=== PATIENT | female | born 1985 | race Caucasian/White ===

== ENCOUNTER 2017-07-27 17:05 | Inpatient (IN) | payer MEDICAID ==
[~2017-07-27] VITALS: Ht 165.1 cm; Wt 104.8 kg
[2017-07-27] MEDS: LACTATED RINGERS 1,000 ML IV SCH (03:15)
[2017-07-27] MEDS ORDERED: PREN-380 PO (17:49)
[2017-07-27 19:51] VITALS: BP 127/77
[2017-07-28] MEDS: LACTATED RINGERS 1,000 ML IV SCH ×4 (03:00→18:35)
--- NOTE | 2017-07-28 09:09 | NUR ---
PATIENT HAS BEEN SCREENED AND CATEGORIZED LOW NUTRITION RISK. PATIENT WILL BE SEEN WITHIN 7 DAYS OF ADMISSION. 08/02/[address]
[2017-07-28] MEDS ORDERED: ACETAMINOPHEN 325 MG TAB ONE ×2 (09:49→18:33)
[2017-07-28] MEDS: ACETAMINOPHEN 325 MG TAB PO PRN ×2 (09:51→18:34)
[2017-07-28] MEDS ORDERED: OXYTOCIN 20 UNITS in LACTATED RINGERS 1,000 ML IV SCH (14:57)
[2017-07-28] MEDS ORDERED: METHYLERGONOVINE 0.2 MG/ML AMP IM PRN (15:00)
[2017-07-28] MEDS ORDERED: PROMETHAZINE 25 MG/ML VIAL IVP PRN (15:00)
[2017-07-28] MEDS ORDERED: OXYTOCIN 10 UNITS/ML VIAL IM SCH (15:00)
[2017-07-28] MEDS ORDERED: LACTATED RINGERS 500 ML IV SCH (15:00)
[2017-07-28] MEDS ORDERED: NALBUPHINE HYDROCHLORIDE 10 MG/ML VIAL IVP PRN (15:00)
[2017-07-28] MEDS ORDERED: AMPICILLIN 2,000 MG in NACL 0.9% MINI-BAG PLUS 100 ML IV SCH (15:00)
[2017-07-28] MEDS ORDERED: CARBOPROST 250 MCG/ML AMP IM PRN (15:00)
[2017-07-28 16:31] LABS: BASOPHILS # (AUTO) 0.1 K/uL (0.00-0.22); BASOPHILS % (AUTO) 1.5 % (0.0-2.0); EOSINOPHILS # (AUTO) 0.1 K/uL (0-0.4); EOSINOPHILS % (AUTO) 0.9 % (0.0-4.0); HEMATOCRIT 36.6 % (36-48); HEMOGLOBIN 12.5 g/dL (12.0-16.0); LYMPHOCYTES # (AUTO) 1.5 K/uL (2.5-16.5); LYMPHOCYTES % (AUTO) 20.9 % (20.5-51.1); MEAN CORPUSCULAR HEMOGLOBIN 31 pg (27-31); MEAN CORPUSCULAR HGB CONC 34 g/dL (33-37); MEAN CORPUSCULAR VOLUME 92 fL (80-94); MONOCYTES # (AUTO) 0.6 K/uL (0.8-1.0); MONOCYTES % (AUTO) 8.7 % (1.7-9.3); PLATELET COUNT (AUTO) 180 K/uL (140-450); RED BLOOD CELL COUNT(AUTO) 3.99 MIL/uL (4.20-5.40); RED CELL DISTRIBUTION WIDTH 12.2 % (11.6-13.7); WHITE BLOOD COUNT (AUTO) 7.3 K/uL (4.8-10.8)
[2017-07-28 16:52] LABS: ANION GAP 15.2 (8-16); CARBON DIOXIDE 22.8 mmol/L (21-32); CREATININE 0.5 mg/dL (0.6-1.3)
[2017-07-28 16:58] LABS: APPEARANCE,URINE CLEAR (CLEAR); BILIRUBIN,URINE NEGATIVE (NEGATIVE); BLOOD, URINE NEGATIVE (NEGATIVE); COLOR,URINE YELLOW (YELLOW); LEUKOCYTE ESTERASE ,URINE TRACE (NEGATIVE); NITRITE, URINE NEGATIVE (NEGATIVE); UGLUCOSE NEGATIVE (NEGATIVE)
[2017-07-28 16:59] LABS: ALBUMIN 2.8 g/dL (3.4-5.0); TOTAL BILIRUBIN 0.3 mg/dL (0.0-1.0)
[2017-07-28 17:18] LABS: RBC,URINE NONE SEEN /HPF (0-5)
[2017-07-29] MEDS ORDERED: AMPICILLIN 1,000 MG in NACL 0.9% MINI-BAG PLUS 50 ML IV SCH ×2
[2017-07-29] MEDS ORDERED: OXYTOCIN 20 UNITS/LR PREMIX 1,000 ML IV ONE (05:32)
[2017-07-29] MEDS ORDERED: BUPIVACAINE 0.125%/NS PREMIX 250 ML ONE (06:45)
[2017-07-29] MEDS: LACTATED RINGERS 1,000 ML IV SCH ×2 (06:59→09:18)
[2017-07-29] MEDS ORDERED: LIDOCAINE MPF 1% - **ER/OR** 10 MG/ML VIAL ONE (10:25)
[2017-07-29] MEDS ORDERED: BUPIVACAINE MPF 0.25% 10 ML VIAL INJ ONE (10:41)
[2017-07-29] MEDS ORDERED: LIDOCAINE MPF 1% - **ER/OR** 30 ML ONE (10:45)
[2017-07-29] MEDS ORDERED: OXYTOCIN 10 UNITS/ML VIAL ONE (10:48)
[2017-07-29 11:27] LABS: RAPID PLASMA REAGIN NON-REACTIVE (Non Reactiv)
[2017-07-29] MEDS ORDERED: OXYTOCIN 20 UNITS in LACTATED RINGERS 1,000 ML IV SCH (12:20)
[2017-07-29] MEDS ORDERED: BISACODYL 5 MG TABEC PO PRN (12:20)
[2017-07-29] MEDS ORDERED: MEASLES, MUMPS, AND RUBELLA 1 VIAL SQVAC PRN (12:20)
[2017-07-29] MEDS ORDERED: ACETAMINOPHEN 325 MG TAB PO PRN (12:20)
[2017-07-29] MEDS ORDERED: oxyCODONE/APAP 5/325 MG 1 TAB TAB ONE (12:59)
[2017-07-29] MEDS: oxyCODONE/APAP 5/325 MG 1 TAB TAB PO PRN (13:01)
[2017-07-29] MEDS: IBUPROFEN 600 MG TAB PO PRN (17:20)
[2017-07-29] MEDS ORDERED: INFLUENZA VIRUS VACCINE QUAD 0.5 ML SYR IMVAC SCH (20:18)
[2017-07-30 08:52] LABS: BASOPHILS # (AUTO) 0.1 K/uL (0.00-0.22); BASOPHILS % (AUTO) 0.6 % (0.0-2.0); EOSINOPHILS % (AUTO) 0.3 % (0.0-4.0); HEMOGLOBIN 11.4 g/dL (12.0-16.0); LYMPHOCYTES % (AUTO) 9.7 % (20.5-51.1); MEAN CORPUSCULAR HEMOGLOBIN 32 pg (27-31); MEAN CORPUSCULAR HGB CONC 35 g/dL (33-37); MEAN CORPUSCULAR VOLUME 92 fL (80-94); MONOCYTES # (AUTO) 0.6 K/uL (0.8-1.0); MONOCYTES % (AUTO) 5.5 % (1.7-9.3); NEUTROPHILS # (AUTO) 8.9 K/uL (1.8-7.7); NEUTROPHILS % (AUTO) 83.9 % (42.2-75.2); PLATELET COUNT (AUTO) 150 K/uL (140-450); RED CELL DISTRIBUTION WIDTH 12.3 % (11.6-13.7); WHITE BLOOD COUNT (AUTO) 10.6 K/uL (4.8-10.8)
[2017-07-30] MEDS: oxyCODONE/APAP 5/325 MG 1 TAB TAB PO PRN (13:58)
[2017-07-30] MEDS: IBUPROFEN 600 MG TAB PO PRN (21:19)
[2017-07-31] MEDS: IBUPROFEN 600 MG TAB PO PRN (12:12)
== END 2017-07-31 18:30 | disposition home or self-care (01) | DRG 560 ==
LOC: OBSVTOIN 17:05 → INTOOBSV 17:05 → UNDOADMOB 17:05 → MLD 17:05 → MFCC 07-28 → OBSVTOIN 07-28 14:57 → MFCC 07-28 14:57 → MLD 07-28 14:57 → MFCC 07-28 15:29 → MLD 07-28 15:29 → MFCC 07-29 14:42
PROVIDERS: ADMIT Obstetrics & Gynecology; ATTEND Obstetrics & Gynecology
PROC: 10E0XZZ Delivery of Products of Conception, External Approach (ICD-10-PCS; principal; 2017-07-29)
PROC: 10907ZC Drainage of Amniotic Fluid, Therapeutic from Products of Conception, Via Natural or Artificial Opening (ICD-10-PCS; 2017-07-29)
PROC: 00HU33Z Insertion of Infusion Device into Spinal Canal, Percutaneous Approach (ICD-10-PCS; 2017-07-29)
PROC: 3E0R3BZ Introduction of Anesthetic Agent into Spinal Canal, Percutaneous Approach (ICD-10-PCS; 2017-07-29)
PROC: 3E0234Z Introduction of Serum, Toxoid and Vaccine into Muscle, Percutaneous Approach (ICD-10-PCS; 2017-07-29)
PROC: 3E0134Z Introduction of Serum, Toxoid and Vaccine into Subcutaneous Tissue, Percutaneous Approach (ICD-10-PCS; 2017-07-29)
PROC: 3E0234Z Introduction of Serum, Toxoid and Vaccine into Muscle, Percutaneous Approach (ICD-10-PCS; 2017-07-29)
DX: O36.8130 Decreased fetal movements, third trimester, not applicable or unspecified (principal); O41.03X0 Oligohydramnios, third trimester, not applicable or unspecified; E66.9 Obesity, unspecified; Z68.38 Body mass index [BMI] 38.0-38.9, adult; O99.214 Obesity complicating childbirth; Z37.0 Single live birth; Z3A.38 38 weeks gestation of pregnancy; Z23 Encounter for immunization
CPT/HCPCS: 36415; 51702; 59409; 76815; 76819; 80053; 81001; 85025; 86592; 86762; 86886; 86900; 86901; 87086; 87340; 87653-90; 90658; 90707; 90715; J2001; J2590; J3490; J7120; Q0092